=== PATIENT | female | born 1960 | race Caucasian/White ===

== ENCOUNTER 2024-11-16 02:02 | Emergency (ER) | payer MEDICARE, OTHER ==
[~2024-11-16] VITALS: Ht 152.4 cm; Wt 67.3 kg
[2024-11-16 02:08] VITALS: BP 129/86; PULSE 63; RESP 18; TEMP 97.7; O2SAT 99
[2024-11-16] MEDS ORDERED: ATOR20TA65 PO (02:36)
[2024-11-16 03:22] LABS: PLATELET COUNT (AUTO) 261 K/uL (150-450); RED BLOOD CELL COUNT(AUTO) 5.04 MIL/uL (4.00-5.20); RED CELL DISTRIBUTION WIDTH 14.2 % (11.5-14.5); WHITE BLOOD COUNT (AUTO) 5.8 K/uL (4.5-11.0)
[2024-11-16 03:43] LABS: APPEARANCE,URINE HAZY (CLEAR); GLUCOSE, URINE (UA) NEGATIVE (NEGATIVE); LEUKOCYTE ESTERASE ,URINE LARGE (NEGATIVE); NITRATE,URINE NEGATIVE (NEGATIVE); OCCULT BLOOD,URINE TRACE (NEGATIVE); SPECIFIC GRAVITIY, URINE 1.009 (1.003-1.030)
[2024-11-16 03:47] LABS: ASPARTATE AMINOTRANSFERASE 16.0 U/L (15-37); TOTAL PROTEIN, SERUM 6.9 g/dL (6.4-8.2)
[2024-11-16 03:54] LABS: SQUAMOUS EPITHELIAL CELL,UR Moderate /LPF (None Seen)
[2024-11-16 04:08] LABS: CALCIUM, TOTAL 9.0 mg/dL (8.8-10.5); CREATININE 0.76 mg/dL (0.60-1.30); GLOMERULAR FILTR. RATE CALC > 60 mL/min (>60); GLUCOSE,RANDOM 103 mg/dL (70-110); TROPONIN I-HIGH SENSITIVITY 14 ng/L (<51); UREA NITROGEN, BLOOD 18 mg/dL (7-18)
[2024-11-16 04:25] LABS: SODIUM SERUM 140 mmol/L (136-145)
[2024-11-16] MEDS: IBUPROFEN 400 MG TABLET PO ONE (05:06)
[2024-11-17] MEDS ORDERED: CEPH-558 PO (08:28)
[2024-11-17] MEDS ORDERED: SULF-261 PO (08:28)
[2024-11-17] MEDS ORDERED: IBUP-1492 PO (08:28)
== END 2024-11-16 05:07 | disposition home or self-care (01) ==
LOC: EMS 02:04
DX: R07.81 Pleurodynia (principal); R07.1 Chest pain on breathing; E78.00 Pure hypercholesterolemia, unspecified; F17.210 Nicotine dependence, cigarettes, uncomplicated; Z79.899 Other long term (current) drug therapy
CPT/HCPCS: 80048; 80076; 81001; 83690; 84484; 85025; 93005; 99284

== ENCOUNTER 2024-11-17 07:46 | Emergency (ER) | payer MEDICARE, OTHER ==
[~2024-11-17] VITALS: Ht 152.4 cm; Wt 63.6 kg
[~2024-11-17 07:46] MED LIST: ATOR20TA65 PO
[2024-11-17 07:48] VITALS: TEMP 97.7
[2024-11-17] MEDS: IBUPROFEN 600 MG TABLET PO ONE (08:12)
[2024-11-17] MEDS: CEPHALEXIN MONOHYDRATE 500 MG CAPSULE PO ONE (08:12)
[2024-11-17] MEDS: SULFAMETHOX/TRIMETH DS 800-160 MG/TABLET PO ONE (08:12)
[2024-11-17] MEDS ORDERED: SULF-261 PO (08:28)
[2024-11-17] MEDS ORDERED: CEPH-558 PO (08:28)
[2024-11-17] MEDS ORDERED: IBUP-1492 PO (08:28)
[2024-11-17 08:30] VITALS: BP 120/86; PULSE 88; RESP 18; O2SAT 98
== END 2024-11-17 08:51 | disposition home or self-care (01) ==
LOC: EMS 07:56
DX: L03.113 Cellulitis of right upper limb (principal); E78.00 Pure hypercholesterolemia, unspecified; F17.210 Nicotine dependence, cigarettes, uncomplicated; Z79.899 Other long term (current) drug therapy
CPT/HCPCS: 99284; 73130-TC; Z7502; Z7610